=== PATIENT | female | born 1970 | race Caucasian/White ===

== ENCOUNTER → 2024-01-30 09:49 | Outpatient (REF) | payer BC, SELFPAY | LOC: MRI 3T 09:49 | PROVIDERS: ATTENDING PHYSICIAN Internal Medicine Medical Oncology; FAMILY PHYSICIAN Physician Assistant Medical | DX: C7A.095 Malignant carcinoid tumor of the midgut, unspecified (principal) | CPT/HCPCS: 74183 ==

== ENCOUNTER → 2024-04-19 11:56 | Outpatient (REF) | payer BC, SELFPAY | LOC: PAVMRI 11:56 | PROVIDERS: ATTENDING PHYSICIAN Nurse Practitioner Adult Health; FAMILY PHYSICIAN Physician Assistant Medical | DX: C7A.095 Malignant carcinoid tumor of the midgut, unspecified (principal) | CPT/HCPCS: 74183; A9575 ==

== ENCOUNTER → 2024-09-24 08:42 | Outpatient (REF) | payer BC, SELFPAY | LOC: MRI 3T 08:42 | PROVIDERS: ATTENDING PHYSICIAN Internal Medicine Medical Oncology; FAMILY PHYSICIAN Physician Assistant Medical | DX: C7A.095 Malignant carcinoid tumor of the midgut, unspecified (principal) | CPT/HCPCS: 74183; A9575 ==

== ENCOUNTER → 2025-04-22 11:13 | Outpatient (REF) | payer BC, SELFPAY | LOC: MRI 11:13 | PROVIDERS: ATTENDING PHYSICIAN Physician Assistant Medical; FAMILY PHYSICIAN Physician Assistant Medical | DX: C7A.095 Malignant carcinoid tumor of the midgut, unspecified (principal) | CPT/HCPCS: 74183; A9575 ==

== ENCOUNTER → 2025-11-25 08:45 | Outpatient (REF) | payer BC, SELFPAY | LOC: PAVMRI 08:45 | PROVIDERS: ATTENDING PHYSICIAN Nurse Practitioner Adult Health; FAMILY PHYSICIAN Physician Assistant Medical | DX: C7A.095 Malignant carcinoid tumor of the midgut, unspecified (principal) | CPT/HCPCS: 74183 ==